=== PATIENT | male | born 1980 | race Caucasian/White ===

== ENCOUNTER 2020-01-24 15:47 | Emergency (ER) | payer BC ==
[~2020-01-24 15:47] MED LIST: AMOXICILLIN500 MG PO; ANAPROX DS550 MG PO; BACTRIM DS 8001 TA1 PO; FLEXERIL10 MG PO; HYDROCODONE BIT1 T11 PO; KEFLEX500 MG PO; LOMOTIL 0.025 M1 TA1 PO; MECLIZINE25 MG PO; NEXIUM40 MG PO; TRAMADOL HCL50 MG PO; [UNRECOGNIZED DRUG - OTHER] PO
[2020-01-24 16:40] LABS: BASO % 0.3 % (0.0-1.0); EOS # 0.1 10*3/uL (0.0-0.4); EOS % 1.5 % (1.0-4.0); HEMATOCRIT 43.7 % (42.0-52.0); LYMPH # 1.8 10*3/uL (1.3-4.4); LYMPH % 20.9 % (27.0-41.0); MEAN CELL VOLUME 87.4 fl (80.0-94.0); MEAN CORPUSCULAR HGB 29.4 pg (27.0-31.0); MEAN CORPUSCULAR HGB CONC 33.6 g/dl (33.0-37.0); MEAN PLATELET VOLUME 10.7 fl (9.6-12.3); MONO # 0.8 10*3/uL (0.1-1.0); MONO % 8.8 % (3.0-9.0); PLATELET COUNT AUTOMATED 197 10*3/uL (130-400); RED CELL DISTRI WIDTH 12.3 % (0-14.5); WHITE BLOOD COUNT 8.8 10*3/uL (4.8-10.8)
[2020-01-24 16:58] LABS: ALBUMIN 3.3 gm/dl (3.1-4.5); ALKALINE PHOSPHATASE 100 U/L (45-117); BUN 12 mg/dl (7-24); CHLORIDE 106 mmol/L (98-107); CREATININE 0.98 mg/dL (0.70-1.30); POTASSIUM 4.3 mmol/L (3.5-5.1); SGOT/AST 17 IU/L (3-35); SGPT/ALT 46 U/L (12-78); SODIUM 138 mmol/L (136-145); TOTAL PROTEIN 6.6 gm/dL (6.4-8.2)
[2020-01-24 17:00] LABS: TROPONIN I < 0.015 ng/ml (<0.045)
[2020-01-24] MEDS ORDERED: MECLIZINE HCL25 M2 PO (18:42)
== END 2020-01-24 19:00 | disposition home or self-care (01) ==
LOC: ED 15:47
PROVIDERS: Nurse Practitioner Family
DX: R42 Dizziness and giddiness (principal); J45.909 Unspecified asthma, uncomplicated; Z87.442 Personal history of urinary calculi

== ENCOUNTER 2021-08-10 14:31 | Emergency (ER) | payer BC ==
[~2021-08-10] VITALS: Wt 136.1 kg
[~2021-08-10 14:31] MED LIST changes: +MECLIZINE HCL25 M2 PO
[2021-08-10] MEDS ORDERED: ANTIBIOTIC28.4 GM T (14:50)
[2021-08-10] MEDS ORDERED: CEPHALEXIN500 M1 PO (14:50)
== END 2021-08-10 14:57 | disposition home or self-care (01) ==
LOC: ED 14:31
DX: S91.311A Laceration without foreign body, right foot, initial encounter (principal); Z23 Encounter for immunization; X58.XXXA Exposure to other specified factors, initial encounter; Y93.89 Activity, other specified; Y92.89 Other specified places as the place of occurrence of the external cause; Y99.8 Other external cause status

== ENCOUNTER → 2021-08-13 | Outpatient (CLI) | payer BC ==
[~2021-08-13] MED LIST changes: +ANTIBIOTIC28.4 GM T; +CEPHALEXIN500 M1 PO
== END ==
LOC: WOUNDCARE 00:34
PROVIDERS: ATTEND Surgery
DX: S91.311A Laceration without foreign body, right foot, initial encounter (principal); Z90.49 Acquired absence of other specified parts of digestive tract; Z95.5 Presence of coronary angioplasty implant and graft; Z79.899 Other long term (current) drug therapy; X58.XXXA Exposure to other specified factors, initial encounter; Y93.89 Activity, other specified; Y92.89 Other specified places as the place of occurrence of the external cause; Y99.8 Other external cause status

== ENCOUNTER → 2022-01-31 | Outpatient (CLI) | payer BC ==
[2022-01-31 08:44] LABS: ALKALINE PHOSPHATASE 106 U/L (45-117); BUN 16 mg/dl (7-24); CHLORIDE 107 mmol/L (98-107); CHOLESTEROL 120 mg/dL (<200); CREATININE 1.06 mg/dL (0.70-1.30); LDL CHOLESTEROL 66 mg/dL (9-159); POTASSIUM 4.7 mmol/L (3.5-5.1); SGOT/AST 20 IU/L (3-35); SGPT/ALT 47 U/L (12-78); SODIUM 140 mmol/L (136-145); TOTAL PROTEIN 7.3 gm/dL (6.4-8.2); TRIGLYCERIDES 69 mg/dl (<150)
== END | disposition home or self-care (01) ==
LOC: LAB 08:09
PROVIDERS: ATTEND Family Medicine
DX: E78.00 Pure hypercholesterolemia, unspecified (principal); Z12.5 Encounter for screening for malignant neoplasm of prostate; Z13.29 Encounter for screening for other suspected endocrine disorder; Z11.59 Encounter for screening for other viral diseases

== ENCOUNTER 2023-04-07 14:03 | Emergency (ER) | payer BC | END 2023-04-07 15:30 | disposition left against medical advice (07) | LOC: ED 14:03 | DX: M54.9 Dorsalgia, unspecified (principal); Z53.21 Procedure and treatment not carried out due to patient leaving prior to being seen by health care provider ==

== ENCOUNTER 2023-07-27 23:30 | Emergency (ER) | payer BC ==
[~2023-07-27] VITALS: Ht 180.3 cm; Wt 146.7 kg
[2023-07-28 00:10] LABS: HEMATOCRIT 43.7 % (42.0-52.0); MEAN CELL VOLUME 86.2 fl (80.0-94.0); MEAN CORPUSCULAR HGB 29.8 pg (27.0-31.0); MEAN CORPUSCULAR HGB CONC 34.6 g/dl (33.0-37.0); MEAN PLATELET VOLUME 11.3 fl (9.6-12.3); PLATELET COUNT AUTOMATED 180 10*3/uL (130-400); RED BLOOD COUNT 5.07 10*6/uL (4.50-5.90)
[2023-07-28 00:19] LABS: ACT PARTIAL THROMBO TIME 23.1 SECONDS (20.0-32.1)
[2023-07-28 00:31] LABS: ALKALINE PHOSPHATASE 92 U/L (46-116); BUN 10 mg/dl (9-23); CHLORIDE 107 mmol/L (98-107); LIPASE 50 U/L (12-53); POTASSIUM 4.4 mmol/L (3.4-5.1); SGPT/ALT 27 U/L (5-49); TOTAL PROTEIN 6.6 gm/dL (6.0-8.0)
[2023-07-28 00:46] LABS: MANUAL DIFF REFLEX YES
[2023-07-28 00:48] LABS: ATYPICAL LYMPHS 1 % (0-0); PLATELET SUFFICIENCY NORMAL (NORMAL); TOTAL CELLS COUNTED 100 #CELLS
[2023-07-28 01:18] LABS: BILIRUBIN Negative (Negative); BLOOD 1+ (Negative); CLARITY Clear (Clear); COLOR Yellow (Yellow); GLUCOSE Negative (Negative); KETONE Negative (Negative); LEUKO ESTERASE Negative (Negative); NITRITE Negative (Negative); SPECIFIC GRAVITY >= 1.030 (1.001-1.030); UROBILINOGEN 0.2 E.U./dl (0.0-1.0)
[2023-07-28 01:34] LABS: RBC 16-20 rbc/hpf (0-2); WBC 0-2 wbc/hpf (0-5)
== END 2023-07-28 02:42 | disposition home or self-care (01) ==
LOC: ED 23:30
PROVIDERS: Internal Medicine
DX: R07.89 Other chest pain (principal); J45.909 Unspecified asthma, uncomplicated; Z87.442 Personal history of urinary calculi; Z90.49 Acquired absence of other specified parts of digestive tract; Z98.890 Other specified postprocedural states; Z79.899 Other long term (current) drug therapy

== ENCOUNTER 2023-08-12 14:13 | Emergency (ER) | payer BC ==
[~2023-08-12] VITALS: Wt 142.9 kg
[2023-08-12] MEDS ORDERED: PREDNISONE5 MG PO (14:29)
[2023-08-12] MEDS ORDERED: CEPHALEXIN500 M1 PO (16:11)
== END 2023-08-12 16:14 | disposition home or self-care (01) ==
LOC: ED 14:13
DX: S61.011A Laceration without foreign body of right thumb without damage to nail, initial encounter (principal); Z87.442 Personal history of urinary calculi; Z90.49 Acquired absence of other specified parts of digestive tract; Z98.890 Other specified postprocedural states; W26.0XXA Contact with knife, initial encounter; Y93.89 Activity, other specified; Y92.89 Other specified places as the place of occurrence of the external cause; Y99.8 Other external cause status

== ENCOUNTER 2025-01-25 06:30 | Emergency (ER) | payer BC ==
[~2025-01-25] VITALS: Ht 180.3 cm; Wt 145.1 kg
[~2025-01-25 06:30] MED LIST changes: +PREDNISONE5 MG PO
[2025-01-25] MEDS ORDERED: METHOCARBAMOL 750 MG TAB PO ONE (06:45)
[2025-01-25] MEDS ORDERED: methylPREDNISolone sod succ 125 MG VIAL IM ONE (06:45)
[2025-01-25] MEDS ORDERED: PREDNISONE20 M1 PO (06:50)
[2025-01-25] MEDS ORDERED: CYCLOBENZAPRINE10 MG PO (06:50)
[2025-01-25] MEDS ORDERED: METHOCARBAMOL750 M1 PO (08:26)
[2025-01-25] MEDS ORDERED: PREDNISONE50 MG PO (08:26)
== END 2025-01-25 14:12 | disposition home or self-care (01) ==
LOC: ED 06:30
DX: M62.838 Other muscle spasm (principal); Z79.899 Other long term (current) drug therapy; Z98.890 Other specified postprocedural states